=== PATIENT | female | born 1955 | race Caucasian/White ===

== ENCOUNTER 2017-06-04 07:17 | Emergency (ER) | payer BC ==
[~2017-06-04] VITALS: Ht 167.6 cm; Wt 68.0 kg
--- NOTE | 2017-06-04 07:17 | NUR ---
R BRANDON CHASE S/P TRIP OVER HER DOG AT 0100, NO KO. APPLIED PRESSURE. OG MYERS ORDER.
--- NOTE | 2017-06-04 07:30 | NUR ---
DR ALVARADO AT BEDSIDE FOR EVAL
[2017-06-04] MEDS ORDERED: TDAP [DIPH/PERTUSSIS/TET] 0.5 ML VIAL IM ONE ×2 (07:32→08:00)
[2017-06-04] MEDS ORDERED: LIDOCAINE HCL/PF 1% 30 ML SDV ONE (07:32)
[2017-06-04] MEDS ORDERED: LIDOCAINE HCL/PF 1% 30 ML VIAL TP ONE (08:00)
--- NOTE | 2017-06-04 08:05 | NUR ---
BED LASTER AT BEDSIDE
[2017-06-04 08:28] VITALS: BP 150/90
--- NOTE | 2017-06-04 08:29 | NUR ---
Patient discharged to home in stable condition. Written and verbal after care instructions given. Patient verbalizes understanding of instruction.
== END 2017-06-04 08:29 | disposition home or self-care (01) ==
LOC: ER 07:20
DX: S51.011A Laceration without foreign body of right elbow, initial encounter (principal); W01.0XXA Fall on same level from slipping, tripping and stumbling without subsequent striking against object, initial encounter; Y93.89 Activity, other specified; Y92.89 Other specified places as the place of occurrence of the external cause; Y99.8 Other external cause status
CPT/HCPCS: 12002; 73080; 90471; 90715; 99284; A4606; A6402; J3490 ×2; Z7610